=== PATIENT | female | born 1955 | race Caucasian/White ===

== ENCOUNTER 2018-01-27 06:39 | Emergency (ER) | payer OTHER ==
[2014-08-03 13:54] VITALS: Wt 74.8 kg
[~2018-01-27 06:39] MED LIST: ACET500L35 PO; ALB17R INH; AMLO-99 PO; AMOX-559 PO; ASPI-879 PO; AZIT-18 PO; AZIT500T47 PO; Acetaminophen PO; Amlodipine Besylate PO; BENZ100C4 PO; BONIVA; CELE-1 PO; CEP250 PO; CETI-459 PO; CEVIMPT PO; HYD200 PO; HYDR-4309 PO; IRBE1TAB24 PO; LISINOPRIL PO; LOR10 PO; MEDROL DOSE PACK; METR-1 PO; MON10 PO; OND4 PO; ONDA4TAB PO; OSE75 PO; PER PO; PRO25 PO; PROM-110 PO
--- NOTE | 2018-01-27 06:52 | ER Report ---
History and Physical Time Seen By MD: 06:51 Hx. of Stated Complaint: PT AWOKE AT 0400 WITH R FLANK PAIN RAD AROUND TO R SIDE. NO HX OF KIDNEY STONES HPI/ROS CHIEF COMPLAINT: Right flank pain with radiation to the right groin HISTORY OF PRESENT ILLNESS: Patient is a 62-year-old female here with sudden onset of right flank pain which started approximately 4:00 this morning and has been persistent, sharp, radiating to the right groin without the presence of hematuria. She did complain of some dysuria this morning however is been previously normal. Patient reports subjective fever however is afebrile at time of evaluation. She does have right lower abdominal pain as well as right CVA tenderness. Denies prior history of nephrolithiasis, hematuria, melena, hematochezia. Patient denies chest pain, shortness of breath,vomiting. She does endorse persistent pain as well as mild nausea. Patient does have history of a cholecystectomy however denies appendectomy. REVIEW OF SYSTEMS: Constitutional: + subjective fever, no chills. Eyes: No discharge. ENT: No sore throat. Cardiovascular: No chest pain, no palpitations. Respiratory: No cough, no shortness of breath. Gastrointestinal: + right mid abdominal pain, no vomiting. Genitourinary: No hematuria, + mild dysuria Musculoskeletal: + right CVA tenderness Skin: No rashes. Neurological: No headache. Allergies: Coded Allergies: Sulfa (Sulfonamide Antibiotics) (Verified Allergy, Severe, 01/27/18) hydrochlorothiazide (Verified Allergy, Unknown, 01/27/18) Uncoded Allergies: INJECTABLE IODINE (Allergy, Severe, 06/11/09) Home Meds Active Scripts Tamsulosin Hcl (FLOMAX) 0.4 Mg Cap.er.24h, 0.4 MG PO QDAY for 14 Days, #14 CAP 0 Refills Prov:DINAH SANDS DO 01/27/18 [Acetaminophen] 500 MG TAB No Conflict Check, 500 MG PO Q6H Y for PAIN, #0 TAB Prov:JADYN SEWELL MD 08/04/14 Reported Medications Duloxetine Hcl (CYMBALTA) 30 Mg Capsule.dr, 30 MG PO QDAY, #5 CAP 01/27/18 Aspirin/Calcium Carbonate/Mag (ASPIRIN BUFFERED 325 MG TAB) 325 Mg Tablet, 325 MG PO DAILY 08/02/14 Cevimeline Hcl (EVOXAC) 30 Mg Cap, 30 MG PO 1-2XD, CAP 08/02/14 Cetirizine Hcl (Zyrtec) 10 Mg Tablet, 10 MG PO QDAY, 0 Refills 06/11/09 Albuterol (Proventil Inhaler) 17 Gm Inh, 1 - 2 PUFF INH, 0 Refills 2 PUFFS 06/11/09 Discontinued Scripts Oseltamivir Phosphate (TAMIFLU) 75 Mg Cap, 75 MG PO BID, #9 CAP Prov:MATHEUS OTERO NP 11/01/16 Ondansetron (ZOFRAN ODT) 4 Mg Tab.rapdis, 4 MG PO Q6H Y for NAUSEA/VOMITING, # 20 TAB.LAUREN Prov:MATHEUS OTERO NP 11/01/16 Benzonatate 100 Mg Cap (TESSALON PERLE 100 MG CAP) 100 Mg Capsule, 100 MG PO TID Y for COUGH, #15 CAP Prov:MATHEUS OTERO NP 11/01/16 Azithromycin 250 Mg Tab (AZITHROMYCIN 250 MG TAB) 250 Mg Tablet, 1 TAB PO QDAY, #6 TAB Take 2 tabs today and then 1 tab a day until gone. Prov:SAUL ABRAMS INFORMATION SERVICES CONSULTANT 10/30/16 Past Medical/Surgical History Hypertension, asthma, acid reflux, frequent urinary tract infection, Sjogren's, skin cancer, pituitary tumor, cholecystectomy, hip replacement, Hx Smoking: No Smoking Status: Never Smoker Exposure to Second Hand Smoke?: No Hx Substance Use Disorder: No Hx Alcohol Use: No Constitutional Vital Sign - Last 24 Hours 01/27/18 01/27/18 01/27/18 01/27/18 06:46 06:46 07:09 07:13 Temp 97.8 Pulse 79 80 Resp 20 B/P (MAP) 149/92 149/92 (111) 129/79 (96) Pulse Ox 93 94 O2 Delivery Room Air 01/27/18 01/27/18 01/27/18 01/27/18 07:15 07:30 07:39 07:45 Pulse 78 B/P (MAP) 138/86 (103) 134/84 (101) 122/78 (93) Pulse Ox 97 01/27/18 01/27/18 01/27/18 01/27/18 07:50 08:00 08:05 08:30 Pulse 70 68 B/P (MAP) 139/80 (99) 136/83 (100) Pulse Ox 95 98 01/27/18 01/27/18 01/27/18 01/27/18 08:35 08:45 09:05 09:15 Pulse 64 B/P (MAP) 138/79 (98) 134/80 (98) Pulse Ox 97 80 01/27/18 01/27/18 01/27/18 01/27/18 09:30 09:35 09:45 09:50 Pulse 74 76 B/P (MAP) 127/70 (89) 140/82 (101) Pulse Ox 95 95 Intake and Output 01/27/18 01/27/18 01/28/18 15:00 23:00 07:00 Intake Total 1000 ml Balance 1000 ml Physical Exam General Appearance: The patient is alert, has no immediate need for airway protection and no signs of toxicity. + moderate discomfort due to pain Eyes: Pupils equal and round no pallor or injection. ENT, Mouth: Mucous membranes are moist. Respiratory: There are no retractions, lungs are clear to auscultation. Cardiovascular: Regular rate and rhythm. Gastrointestinal: Abdomen is soft and + TTP right mid abdomen no masses, bowel sounds normal. Neurological: No focal deficits Skin: Warm and dry, no rashes. Musculoskeletal: Neck is supple non tender, + right CVA tenderness. Extremities are nontender, nonswollen and have full range of motion. DIFFERENTIAL DIAGNOSIS: After history and physical exam differential diagnosis was considered for abdominal pain including but not limited to appendicitis, cholecystitis, gastritis and urinary tract infection, nephrolithiasis, pyelonephritis Medical Decision Making Data Points Result Diagram: 01/27/18 0704 01/27/18 0704 Laboratory Hematology Test 01/27/18 07:04 01/27/18 09:07 01/27/18 10:03 Red Blood Count 5.07 M/uL (4.17-5.56) Mean Corpuscular Volume 100.9 fL (80.0-96.0) Mean Corpuscular Hemoglobin 34.4 pg (26.0-33.0) Mean Corpuscular Hemoglobin Concent 34.0 g/dL (32.0-36.0) Red Cell Distribution Width 13.2 % (11.5-14.5) Mean Platelet Volume 7.5 fL (7.2-11.1) Neutrophils (%) (Auto) 69.7 % (39.4-72.5) Lymphocytes (%) (Auto) 16.7 % (17.6-49.6) Monocytes (%) (Auto) 9.3 % (4.1-12.4) Eosinophils (%) (Auto) 3.1 % (0.4-6.7) Basophils (%) (Auto) 1.2 % (0.3-1.4) Nucleated RBC Relative Count (auto) 0.1 /100WBC Neutrophils # (Auto) 6.8 K/uL (2.0-7.4) Lymphocytes # (Auto) 1.6 K/uL (1.3-3.6) Monocytes # (Auto) 0.9 K/uL (0.3-1.0) Eosinophils # (Auto) 0.3 K/uL (0.0-0.5) Basophils # (Auto) 0.1 K/uL (0.0-0.1) Nucleated RBC Absolute Count (auto) 0.01 K/uL Sodium Level 142 mmol/L (137-145) Potassium Level 4.0 mmol/L (3.5-5.0) Chloride Level 105 mmol/L (98-107) Carbon Dioxide Level 24 mmol/L (22-31) Blood Urea Nitrogen 22 mg/dl (7-18) Creatinine 0.90 mg/dl (0.52-1.04) Glomerular Filtration Rate Calc > 60.0 Random Glucose 96 mg/dl (75-110) Calcium Level 10.2 mg/dl (8.4-10.2) Total Bilirubin 0.4 mg/dl (0.2-1.3) Aspartate Amino Transf (AST/SGOT) 29 U/L (0-35) Alanine Aminotransferase (ALT/SGPT) 44 U/L (0-56) Alkaline Phosphatase 163 U/L (0-126) Total Protein 6.6 gm/dl (6.3-8.2) Albumin 4.0 g/dl (3.5-5.0) Lipase 104 U/L (23-300) Urine Color Yellow Urine Clarity Slightly-cloudy Urine pH 5.0 pH (4.8-9.5) Urine Specific [place] 1.033 Urine Protein Negative mg/dL (NEGATIVE) Urine Glucose (UA) Negative mg/dL (NEGATIVE) Urine Ketones Negative mg/dL (NEGATIVE) Urine Blood Negative (NEGATIVE) Urine Nitrite Negative (NEGATIVE) Urine Bilirubin Negative (NEGATIVE) Urine Urobilinogen Negative mg/dL (0.2-1.9) Urine Leukocyte Esterase Large (NEGATIVE) Urine RBC 71 /HPF (0-2/HPF) Urine WBC 63 /HPF (0-5/HPF) Urine Squamous Epithelial Cells Many /LPF (</=FEW) Urine Renal Epithelial Cells Moderate /LPF (NONE-FEW) Urine Calcium Oxalate Crystals Few /HPF (NONE) Urine Bacteria Negative /HPF (NONE-FEW) Urine Mucus Few /HPF (NONE-FEW) Lactate 0.6 mmol/L (0.7-2.1) Chemistry Test 01/27/18 07:04 01/27/18 09:07 01/27/18 10:03 White Blood Count 9.7 k/uL (4.5-11.0) Red Blood Count 5.07 M/uL (4.17-5.56) Hemoglobin 17.4 g/dL (12.0-16.0) Hematocrit 51.1 % (34.0-47.0) Mean Corpuscular Volume 100.9 fL (80.0-96.0) Mean Corpuscular Hemoglobin 34.4 pg (26.0-33.0) Mean Corpuscular Hemoglobin Concent 34.0 g/dL (32.0-36.0) Red Cell Distribution Width 13.2 % (11.5-14.5) Platelet Count 411 K/uL (150-450) Mean Platelet Volume 7.5 fL (7.2-11.1) Neutrophils (%) (Auto) 69.7 % (39.4-72.5) Lymphocytes (%) (Auto) 16.7 % (17.6-49.6) Monocytes (%) (Auto) 9.3 % (4.1-12.4) Eosinophils (%) (Auto) 3.1 % (0.4-6.7) Basophils (%) (Auto) 1.2 % (0.3-1.4) Nucleated RBC Relative Count (auto) 0.1 /100WBC Neutrophils # (Auto) 6.8 K/uL (2.0-7.4) Lymphocytes # (Auto) 1.6 K/uL (1.3-3.6) Monocytes # (Auto) 0.9 K/uL (0.3-1.0) Eosinophils # (Auto) 0.3 K/uL (0.0-0.5) Basophils # (Auto) 0.1 K/uL (0.0-0.1) Nucleated RBC Absolute Count (auto) 0.01 K/uL Glomerular Filtration Rate Calc > 60.0 Calcium Level 10.2 mg/dl (8.4-10.2) Total Bilirubin 0.4 mg/dl (0.2-1.3) Aspartate Amino Transf (AST/SGOT) 29 U/L (0-35) Alanine Aminotransferase (ALT/SGPT) 44 U/L (0-56) Alkaline Phosphatase 163 U/L (0-126) Total Protein 6.6 gm/dl (6.3-8.2) Albumin 4.0 g/dl (3.5-5.0) Lipase 104 U/L (23-300) Urine Color Yellow Urine Clarity Slightly-cloudy Urine pH 5.0 pH (4.8-9.5) Urine Specific [place] 1.033 Urine Protein Negative mg/dL (NEGATIVE) Urine Glucose (UA) Negative mg/dL (NEGATIVE) Urine Ketones Negative mg/dL (NEGATIVE) Urine Blood Negative (NEGATIVE) Urine Nitrite Negative (NEGATIVE) Urine Bilirubin Negative (NEGATIVE) Urine Urobilinogen Negative mg/dL (0.2-1.9) Urine Leukocyte Esterase Large (NEGATIVE) Urine RBC 71 /HPF (0-2/HPF) Urine WBC 63 /HPF (0-5/HPF) Urine Squamous Epithelial Cells Many /LPF (</=FEW) Urine Renal Epithelial Cells Moderate /LPF (NONE-FEW) Urine Calcium Oxalate Crystals Few /HPF (NONE) Urine Bacteria Negative /HPF (NONE-FEW) Urine Mucus Few /HPF (NONE-FEW) Lactate 0.6 mmol/L (0.7-2.1) Urinalysis Test 01/27/18 09:07 Urine Color Yellow Urine Clarity Slightly-cloudy Urine pH 5.0 pH (4.8-9.5) Urine Specific [place] 1.033 Urine Protein Negative mg/dL (NEGATIVE) Urine Glucose (UA) Negative mg/dL (NEGATIVE) Urine Ketones Negative mg/dL (NEGATIVE) Urine Blood Negative (NEGATIVE) Urine Nitrite Negative (NEGATIVE) Urine Bilirubin Negative (NEGATIVE) Urine Urobilinogen Negative mg/dL (0.2-1.9) Urine Leukocyte Esterase Large (NEGATIVE) Urine RBC 71 /HPF (0-2/HPF) Urine WBC 63 /HPF (0-5/HPF) Urine Squamous Epithelial Cells Many /LPF (</=FEW) Urine Renal Epithelial Cells Moderate /LPF (NONE-FEW) Urine Calcium Oxalate Crystals Few /HPF (NONE) Urine Bacteria Negative /HPF (NONE-FEW) Urine Mucus Few /HPF (NONE-FEW) ED Course/Re-evaluation ED Course Patient is a 62-year-old female with acute onset of right flank pain new-onset approximately 4:[address] imaging identified a 5 mm kidney stone in the proximal right ureter with mild hydronephrosis. Urinalysis was contaminated but was not convincing for urinary tract infection. I discussed the patient with Dr. aBker with Urology on-call who agreed with outpatient follow-up. Referral was placed. I updated the patient regarding the plan and she voiced understanding. She was given a prescription for Flomax. Kidney function was intact. Pain was under control and I discussed pain management courses at home. Patient voiced understanding and agreed to return promptly if condition worsened. Re-evaluation Patient condition improved upon reevaluation Decision to Disposition Date: January 27, 2018 Decision to Disposition Time: 10:26 Depart Departure Latest Vital Signs Vital Signs Date Time Temp Pulse Resp B/P (MAP) Pulse Ox O2 Delivery O2 Flow Rate FiO2 01/27/18 09:50 76 95 01/27/18 09:45 140/82 (101) 01/27/18 06:46 97.8 20 Room Air Impression: Primary Impression: Nephrolithiasis Additional Impression: Flank pain, acute Condition: Improved Disposition: HOME OR SELF-CARE Referrals: TAI EAGLE DO (PCP) ISELA BAKER MD New Scripts Tamsulosin Hcl (FLOMAX) 0.4 Mg Cap.er.24h 0.4 MG PO QDAY for 14 Days, #14 CAP 0 Refills Prov: DINAH SANDS DO 01/27/18 Patient Instructions: Kidney Stones (ED), Tamsulosin (By mouth) Additional Instructions: You have a kidney stone in her right proximal ureter which is 5 mm in diameter which places you at a higher risk of not passing the stone. I discussed your case with Dr. Baker and he agreed to follow-up with you in clinic. Please call the urology clinic for follow-up for tomorrow. You may take pain medications as needed for pain control, including naproxen or Advil as recommended on the bottle. You may take 1 tablet of Flomax daily to increase the likelihood that you will pass the stone. Problem Qualifiers DINAH SANDS DO January 27, 2018 06:52
[2018-01-27] MEDS ORDERED: DULO30CA35 PO (06:53)
[2018-01-27] MEDS ORDERED: NS(*) 0.9% 1000 ML BAG 1,000 ML IV ONE (06:58)
[2018-01-27] MEDS ORDERED: KETOROLAC 30 MG/ML VIAL IVP ONE (07:00)
[2018-01-27] MEDS ORDERED: ONDANSETRON 4 MG/2 ML VIAL IVP ONE (07:00)
[2018-01-27 07:14] LABS: PLATELET COUNT, AUTOMATED 411 K/uL (150-450)
--- NOTE | 2018-01-27 07:58 | RADIOLOGY IMAGING REPORT ---
FACILITY: [facility] - [place] PATIENT NAME: Analisa Espinosa : 1955 MR: [id number] V: [id number] EXAM DATE: ORDERING PHYSICIAN: DINAH SANDS TECHNOLOGIST: Location: [facility] - [place] Patient: Analisa Espinosa : 1955 Visit/Account:[id number] Date of Sevice: 01/27/2018 EXAMINATION: CT abdomen without IV contrast CT pelvis without IV contrast HISTORY: Right flank pain. TECHNIQUE: Spiral scan was through the abdomen and pelvis without intravenous contrast. Sagittal a nd coronal reformatted images are also submitted. One of the following dose optimization techniques was utilized in the performance of this exam: Autom ated exposure control; adjustment of the mA and/or kV according to the patient's size; or use of an i terative reconstruction technique. Specific details can be referenced in the facility's radiology C T exam operational policy. COMPARISON: None. FINDINGS: Lower chest: Multiple micronodules in the lung bases, unchanged compared with 08/02/2014. Please note that without intravenous contrast, sensitivity to detection of parenchymal disease is scott ited. Liver / biliary: Cholecystectomy. Otherwise negative. Pancreas: Negative. Spleen: Negative. Adrenal glands: Negative. Kidneys: 2 mm nonobstructing stones in the inferior left kidney. 5 mm stone in the proximal right ure ter with mild right hydronephrosis. Small parapelvic cysts in the inferior left kidney. Pelvic structures: Negative. Bowel: Normal appendix. No obstruction or bowel wall thickening. Peritoneum / retroperitoneum / mesenteries: Negative. Vessels: Mild arterial calcification. No abdominal aortic aneurysm. Musculoskeletal / Body wall: Partially imaged right hip arthroplasty. Mild left hip osteoarthritis. M ultilevel degenerative disc disease and facet hypertrophy in the thoracolumbar spine, most severe at L5-S1. Lymph node assessment: Negative. IMPRESSION: 1. 5 mm stone in the proximal right ureter with mild right hydronephrosis. 2. 2 mm nonobstructing stones in the inferior left kidney. Report Dictated By: Stephen Fuentes MD at 01/27/2018 7:46 AM Report E-Signed By: Stephen Fuentes MD at 01/27/2018 7:54 AM WSN:[id number]
[2018-01-27] MEDS ORDERED: METOCLOPRAMIDE 10 MG/2 ML SDV IVP ONE (08:05)
[2018-01-27] MEDS ORDERED: HYDROmorphone* 1 MG/ML 1 MG/ML ML IVP ONE (08:15)
[2018-01-27 09:45] VITALS: BP 140/82
[2018-01-27] MEDS ORDERED: TAMS0.4C25 PO (10:20)
== END 2018-01-27 10:33 | disposition home or self-care (01) ==
LOC: ER 06:46
DX: N13.2 Hydronephrosis with renal and ureteral calculous obstruction (principal)
CPT/HCPCS: 36415; 74176; 81001; 83605; 83690; 85025; 87088; 96361; 96374; 96375; 99284; J1170; J1885; J2405; J2765; J7030; 82040; 82247; 82310; 82374; 82435; 82565; 82947; 84075; 84132; 84155; 84295; 84450; 84460; 84520

== ENCOUNTER 2018-02-06 01:43 | Day surgery (SDC) | payer OTHER ==
[2014-08-03 13:54] VITALS: Ht 162.6 cm; Wt 76.2 kg
[~2018-02-06] VITALS: Ht 162.6 cm; Wt 76.2 kg
[~2018-02-06 01:43] MED LIST changes: +DULO30CA35 PO; +NABU-95 PO; +TAMS0.4C25 PO
[2018-02-06 06:08] LABS: PLATELET COUNT, AUTOMATED 454 K/uL (150-450)
[2018-02-06] MEDS ORDERED: ceFAZolin(*) 1 GM VIAL 1 GM in NS(*) 0.9% 100 ML ADDVANT BAG 100 ML IVPB ONE (06:45)
[2018-02-06] MEDS ORDERED: ceFAZolin(*) 2GM/D5W 50ML 50 ML IVPB ONE (06:45)
[2018-02-06] MEDS ORDERED: NORMOSOL R SOLN(*) 1000 ML BAG 1,000 ML IV PRN (06:45)
[2018-02-06] MEDS ORDERED: LIDOCAINE/SOD BICARB 8.4% SYR ID ONE (06:45)
[2018-02-06] MEDS ORDERED: MIDAZOLAM 2 MG/2 ML VIAL IVP PRN (06:45)
[2018-02-06] MEDS ORDERED: FAMOTIDINE 20 MG TAB PO ONE (06:45)
[2018-02-06 07:03] VITALS: BP 164/93
[2018-02-06] MEDS ORDERED: IOPAMIDOL-200 50 ML VIAL IS ONE ×2 (07:11→09:03)
[2018-02-06] MEDS ORDERED: IOPAMIDOL 20 ML VIAL IT ONE (07:11)
[2018-02-06] MEDS ORDERED: fentaNYL CITR 100 MCG/2 ML AMP ONE ×2 (07:13→10:52)
[2018-02-06] MEDS ORDERED: ONDANSETRON 4 MG/2 ML VIAL ONE (07:14)
[2018-02-06] MEDS ORDERED: LIDOCAINE MPF 1% 5 ML VIAL ONE (07:14)
[2018-02-06] MEDS ORDERED: PROPOFOL EMUL(*) 10MG/ML 20 ML 20 ML ONE (07:14)
[2018-02-06] MEDS ORDERED: DEXAMETHASONE SOD PHOS 10MG/ML ONE (07:14)
[2018-02-06] MEDS ORDERED: KETAMINE HCL 200 MG/20 ML MDV ONE (07:15)
[2018-02-06] MEDS ORDERED: LIDOCAINE 2% JELLY 5 ML TUBE ONE (07:15)
[2018-02-06] MEDS ORDERED: HYDROCORTISONE 1% CR 28.35 GM TP ONE (07:15)
[2018-02-06] MEDS ORDERED: HYDR-4309 PO (10:21)
[2018-02-06] MEDS ORDERED: FAMO20TA28 PO (10:22)
[2018-02-06] MEDS ORDERED: PHEN200T32 PO (10:22)
[2018-02-06] MEDS ORDERED: IBUP600T22 PO (10:23)
[2018-02-06] MEDS ORDERED: CEPH500T7 PO (10:23)
[2018-02-06] MEDS ORDERED: PHENAZOPYRIDINE 200 MG TAB ONE (10:37)
[2018-02-06] MEDS ORDERED: GENTAMICIN(*) 80 MG/2 ML VIAL 160 MG in NS(*) 0.9% 100 ML BAG 100 ML IVPB ONE (10:45)
[2018-02-06] MEDS ORDERED: APAP/HYDROCODONE 325/5 TAB ONE (11:09)
[2018-02-06 11:15] VITALS: BP 146/88
[2018-02-06 11:30] VITALS: BP 142/76
--- NOTE | 2018-02-06 11:36 | RADIOLOGY IMAGING REPORT ---
FACILITY: [facility] PATIENT NAME: Analisa Espinosa : 1955 MR: [id number] V: [id number] EXAM DATE: ORDERING PHYSICIAN: ISELA BAKER TECHNOLOGIST: Location: [facility] - [place] Patient: Analisa Espinosa : 1955 Visit/Account:[id number] Date of Sevice: 02/06/2018 Exam type: RETROGRADE PYELOGRAM History: KIDNEY STONES Comparison: CT abdomen and pelvis January 27, 2018. Findings: 11 portable intraoperative fluoroscopic views of the abdomen pelvis were submitted. The total fluoro scopy time was 0.11 minutes. The fluoroscopy dose was 8.32 mGray . Image one demonstrates a 5 mm calcification previously described in the proximal right ureter proj ecting just inferior to the right transverse process of L3. Subsequent images demonstrated contrast in the mildly dilated right renal collecting system and in the right ureter and bladder. The calcifi cation is obscured by the contrast although likely refluxed retrograde into the right renal collectin g system. IMPRESSION: 1. As above Report Dictated By: Archana Marti MD at 02/06/2018 11:10 AM Report E-Signed By: Archana Marti MD at 02/06/2018 11:33 AM IRMAN:[email or web address]
[2018-02-06 11:45] VITALS: BP 146/82
--- NOTE | 2018-02-06 12:26 | FLOCK CYSTOURETHROSCOPY ---
EVENT DATE: February 06, 2018 SURGEON: Shay Lagos MD ANESTHESIOLOGIST: Richmond Chaudhari MD ANESTHESIA: General PREOPERATIVE DIAGNOSES 1. Right ureteral lithiasis. 2. Left ureteral lithiasis. POSTOPERATIVE DIAGNOSES 1. Right ureteral lithiasis. 2. Left ureteral lithiasis. PROCEDURES PERFORMED 1. Cystourethroscopy. 2. Right ureteral pyelogram. 3. Manipulation of right ureteral stone in the right renal pelvis. 4. Placement of right indwelling ureteral stent, 6-Romansh x 26 cm PercuFlex Plus. 5. Placement of external stent of the left kidney. 6. Left extracorporeal shockwave lithotripsy of one stone in the left kidney. 7. Right extracorporeal shockwave lithotripsy of manipulated stone in the right renal pelvis, one stone treated. DESCRIPTION OF PROCEDURE Under general anesthetic, the patient was prepped and draped in the extended lithotomy position. The 21-Panendoscope was admitted through the urethra and into the bladder. No stones were visible in the bladder. Right right pyelograms were obtained with a 10 cone-tip catheter. There appeared to be possibly a stone in the right upper ureter. The 10 cone-tip was passed up the right collective system. I believe there was a stone dislodged 2-3 inches below the right renal pelvis into the right kidney. The 6-Romansh x 26 cm PercuFix Plus was passed up the right collecting system. X-ray confirmed satisfactory position. The external stent was placed up the left system, 8- Romansh cone-tip. The external stent was secured to a Lopez catheter and drainage system. Contrast media was attached. The patient was transferred to the stone treatment unit. After positioning, the stone in the anterior pole area was localized utilizing contrast media and treated with a total of 2300 shocks. The patient was repositioned for possible right extracorporeal shockwave lithotripsy. It was our clinical impression that the stone, indeed, had been manipulated into the right renal pelvis. The technologist positioned the shockwave machine for right extracorporeal shockwave lithotripsy and after localization the stone that had manipulated into the right renal pelvis was treated with total again with 2300 shocks. Contrast media was not needed. The stone appeared to have satisfactorily disintegrated. The patient tolerated the procedure satisfactorily and returned to the recovery room in satisfactory condition. The left external stent and cath Lopez were removed. This is a 61-year-old white female complaining of right ureteral lithiasis with associated colic, nausea and vomiting. Her pain diminished and she was tolerating liquids and elected to follow up for evaluation therapy. That has been accomplished. See operative note for details. The patient will be ready for discharge home when alert and functional. She is to force fluids 12 glasses of water per day. Activities are as tolerated. We plan followup this coming Sunday, February 11, 2018. She is to call for an appointment. A copy of the instructions was given to the patient. She is to strain all of her urine. She was sent home with strainers. The patient is ____ __ kidney to facilitate passage of stone particles. A copy of instructions for renal precautions was given to the patient. A copy of explanation and expectations from right indwelling ureteral stent was given to the patient. KUB and renal tomograms were planned for Saturday a.m. on February 11, 2018. She is to bring her films to the office for review. She was discharged on [place], Keflex, Pepcid, Motrin and Pyridium therapy. She is to continue her usual medications. We plan followup in one week to remove the right ureteral stent and do right uteroscopy to reevaluate for resolution of her urolithiasis problem. We may consider CT IVP without contrast as well and followup. DALE
[2018-02-12] MEDS ORDERED: FLUT1DIS27 IH (10:55)
--- NOTE | 2018-02-20 09:12 | RADIOLOGY IMAGING REPORT ---
FACILITY: [facility] - [place] PATIENT NAME: Analisa Espinosa : 1955 MR: [id number] V: [id number] EXAM DATE: ORDERING PHYSICIAN: ISELA BAKER TECHNOLOGIST: Location: [facility] [place] Patient: Analisa Espinosa : 1955 Visit/Account:[id number] Date of Sevice: 02/06/2018 KUB SINGLE VIEW ABDOMEN HISTORY: Kidney stone. COMPARISON: CT abdomen and pelvis without contrast dated 01/27/2018. FINDINGS: Supine abdominal radiograph. Lines/tubes: None. Bowel gas pattern: Normal. Soft tissues: 5 to 6 mm stone in the proximal right ureter, better seen on the recent CT scan. Right upper quadrant surgical clips. Bony structures: Partially imaged right hip arthroplasty. Mild degenerative changes in the spine. IMPRESSION: 5 to 6 mm stone in the proximal right ureter, better seen on the recent CT scan. Report Dictated By: Stephen Fuentes MD at 02/20/2018 9:05 AM Report E-Signed By: Stephen Fuentes MD at 02/20/2018 9:07 AM WSN:[id number]
== END 2018-02-06 11:01 | disposition home or self-care (01) ==
LOC: OR 01:43
DX: N20.2 Calculus of kidney with calculus of ureter (principal); J45.909 Unspecified asthma, uncomplicated; I10 Essential (primary) hypertension; G47.33 Obstructive sleep apnea (adult) (pediatric); K21.9 Gastro-esophageal reflux disease without esophagitis; F32.9 Major depressive disorder, single episode, unspecified; Z90.49 Acquired absence of other specified parts of digestive tract
CPT/HCPCS: 36415; 52330; 52356; 74018; 74420; 81001; 85025; 87088; A4338; C1758; C1769; C1894; C2617; J0690; J1100; J1580; J2001; J2405; J2704; J3010; J3490; J7050; Q9966

== ENCOUNTER → 2018-02-11 | Outpatient (CLI) | payer OTHER ==
[2014-08-03 13:54] VITALS: BMI 27.5
[~2018-02-11] MED LIST changes: +CEPH500T7 PO; +FAMO20TA28 PO; +FLUT1DIS27 IH; +IBUP600T22 PO; +PHEN200T32 PO
--- NOTE | 2018-02-11 08:46 | RADIOLOGY IMAGING REPORT ---
FACILITY: [facility] - [place] PATIENT NAME: Analisa Espinosa : 1955 MR: [id number] V: [id number] EXAM DATE: ORDERING PHYSICIAN: ISELA BAKER TECHNOLOGIST: Location: [facility] [place] Patient: Analisa Espinosa : 1955 Visit/Account:[id number] Date of Sevice: 02/11/2018 Exam type: KUB SINGLE VIEW ABDOMEN History: Nephrolithiasis Comparison: CT abdomen pelvis January 27, 2018. And a retropyelogram February 06, 2018 Findings: Bowel gas pattern is nonspecific. There is a right ureteral stent in place. The previously noted ri ght ureteral calculus may be projecting over the right transverse process of L4 although; this could actually represent overlying bowel contents. No definite calcifications are seen projecting over the renal shadows although overlapping bowel contents are also present obscuring fine details. Incident ally noted is a right hip arthroplasty and surgical clips right upper quadrant of abdomen IMPRESSION: 1. As above Report Dictated By: Archana Marti MD at 02/11/2018 8:38 AM Report E-Signed By: Archana Marti MD at 02/11/2018 8:41 AM WSN:[email or web address]
== END ==
LOC: RAD 08:00
DX: N20.2 Calculus of kidney with calculus of ureter (principal); Z96.0 Presence of urogenital implants; Z96.641 Presence of right artificial hip joint
CPT/HCPCS: 74018

== ENCOUNTER 2018-02-13 00:12 | Day surgery (SDC) | payer OTHER ==
[2014-08-03 13:54] VITALS: Ht 162.6 cm; Wt 76.2 kg
[~2018-02-13] VITALS: Ht 162.6 cm; Wt 76.2 kg
[2018-02-13 08:05] VITALS: BP 152/90
[2018-02-13] MEDS ORDERED: NORMOSOL R SOLN(*) 1000 ML BAG 1,000 ML IV PRN (08:10)
[2018-02-13] MEDS ORDERED: FAMOTIDINE 20 MG TAB PO ONE (08:10)
[2018-02-13] MEDS ORDERED: MIDAZOLAM 2 MG/2 ML VIAL IVP PRN (08:10)
[2018-02-13] MEDS ORDERED: ceFAZolin(*) 1 GM VIAL 1 GM in NS(*) 0.9% 100 ML ADDVANT BAG 100 ML IVPB ONE (08:10)
[2018-02-13] MEDS ORDERED: LIDOCAINE/SOD BICARB 8.4% SYR ID ONE (08:10)
[2018-02-13] MEDS ORDERED: fentaNYL CITR 100 MCG/2 ML AMP ONE ×3 (08:13→10:55)
[2018-02-13] MEDS ORDERED: LIDOCAINE 2% IV 100 MG/5ML SYR ONE (08:13)
[2018-02-13] MEDS ORDERED: PROPOFOL EMUL(*) 10MG/ML 20 ML 20 ML ONE (08:14)
[2018-02-13] MEDS ORDERED: IOPAMIDOL-200 50 ML VIAL IS ONE (09:26)
[2018-02-13] MEDS ORDERED: HYDROCORTISONE 1% CR 28.35 GM TP ONE (09:26)
[2018-02-13] MEDS ORDERED: ONDANSETRON 4 MG/2 ML VIAL ONE (09:49)
[2018-02-13] MEDS ORDERED: DEXAMETHASONE SOD PHOS 10MG/ML ONE (09:49)
[2018-02-13] MEDS ORDERED: GENTAMICIN 80 MG/2 ML VIAL ONE (09:57)
[2018-02-13] MEDS ORDERED: KETOROLAC 30 MG/ML VIAL ONE (11:51)
[2018-02-13] MEDS ORDERED: PHEN200T32 PO (11:54)
[2018-02-13] MEDS ORDERED: CEPH500T7 PO (11:55)
[2018-02-13] MEDS ORDERED: FAMO-67 PO (11:56)
[2018-02-13] MEDS ORDERED: HYDR-385 PO (11:56)
[2018-02-13] MEDS ORDERED: PHENAZOPYRIDINE 200 MG TAB ONE (12:02)
[2018-02-13 12:25] VITALS: BP 152/97
[2018-02-13 12:36] VITALS: BP 158/103
[2018-02-13 12:38] VITALS: BP 149/95
--- NOTE | 2018-02-13 13:56 | RADIOLOGY IMAGING REPORT ---
FACILITY: [facility] PATIENT NAME: Analisa Espinosa : 1955 MR: [id number] V: [id number] EXAM DATE: ORDERING PHYSICIAN: ISELA BAKER TECHNOLOGIST: Location: [facility] Patient: Analisa Espinosa : 1955 Visit/Account:[id number] Date of Sevice: 02/13/2018 Exam type: C-ARM FLUORO 1 HR History: STENT REMOVAL AND POSSIBLE KIDNEY STONE Comparison: CT abdomen and pelvis January 27, 2018. Findings: 21 portable intraoperative CR spot views of the abdomen pelvis were submitted. The total fluoroscopy time was 0.18 minutes. The fluoroscopy dose of 16 mGray. Numerous images demonstrate a ureteroscope and guidewire projecting over the right side of the abdome n and pelvis. The calculi identified in the proximal right ureter and within the left renal collecti ng system on the recent CT are not well seen. IMPRESSION: 1. As above Report Dictated By: Archana Marti MD at 02/13/2018 1:40 PM Report E-Signed By: Archana Marti MD at 02/13/2018 1:52 PM WSN:[id number]
--- NOTE | 2018-02-13 13:58 | OPERATIVE REPORT 1 ---
EVENT DATE: February 13, 2018 SURGEON: Hemal Lagos MD ANESTHESIOLOGIST: Arthur Chaudhry MD ANESTHESIA: General anesthetic. PREOPERATIVE DIAGNOSES 1. Possible right ureterorenal lithiasis. 2. Urethral polyps. 3. Right ureteral stent. POSTOPERATIVE DIAGNOSES 1. Possible right ureterorenal lithiasis. 2. Urethral polyps. 3. Right ureteral stent. PROCEDURES PERFORMED 1. Cystourethroscopy. 2. Removal of the right ureteral stent. 3. Semi-rigid ureteroscopy. 4. Flexible ureterorenoscopy. 5. Fulguration of urethral polyps. DESCRIPTION OF PROCEDURE Under general anesthetic, the patient was prepped and draped in an extended lithotomy position. A 21 panendoscope admitted through the urethra into the bladder. The urethra showed an inflammatory urethritis and pseudomembranous trigonitis. She had a few fine velamentous-type polyps at the bladder neck area circumferentially. Bladder showed 2 to 3+ trabeculation. Trigone and ureteral orifices were normal. Right ureteral stent was removed. Both pre- and post stent removal, no stones were visible in the bladder. The semi-rigid scope passed up the right collecting system to approximately the mid upper ureter. I was unable to negotiate beyond that point. Both ascending and descending with the semi-rigid scope revealed no ureterolithiasis. The guidewire was placed. The flexible ureterorenoscope was passed over the guidewire up into the right kidney. X-ray confirmed satisfactory positioning. Inspection of the collecting system, renal pelvis showed one small fragment of calculi. There were no other stone fragments. Both ascending and descending the ureter, no stones were visible again in the ureter. The polyps at the bladder neck area were lightly fulgurated with light coagulation current, just the polyps themselves. No intervening tissue. There were approximately five to six of these in number. The urethral polyps were satisfactorily resolved with light coagulation current. Hydrocortisone cream was left per urethra. Patient tolerated the procedures satisfactorily and returned to the recovery room in satisfactory condition. This is a 62-year-old white female complaining of right upper ureteral and left renal lithiasis. She had previous treatment approximately two weeks ago. Followup KUB shows probable resolution of the ureterolithiasis. That was confirmed in my opinion on this evaluation. The urethral polyps were lightly fulgurated. Patient will be ready for discharge home when alert and functional. Force fluids, 12 glasses of water per day. Activities are as tolerated. She is to continue her usual medications. A copy of instructions was given to the patient. Plan followup 11 March 2018. She is to call for an appointment. She is to strain all her urine, and she states she has been straining for fragments periodically since her ESWL treatment. Again, she is to percuss the right kidney frequently to facilitate passage of any stone particles. A copy of instructions again was given for renal percussion. She was given a dose of Toradol in the recovery room. She is to continue her Keflex, Pyridium, and [place] therapy in addition to her usual medications. [facility]
== END 2018-02-13 12:25 | disposition home or self-care (01) ==
LOC: OR 00:12
DX: N36.2 Urethral caruncle (principal)
CPT/HCPCS: 52354; 76000; 87088; C1769; J0690; J1100; J1580; J1885; J2001; J2405; J2704; J3010; J7050; Q9966

== ENCOUNTER → 2018-05-09 | Outpatient (CLI) | payer OTHER ==
[2014-08-03 13:54] VITALS: BMI 27.5
[~2018-05-09] MED LIST changes: +AMLO-113 PO; -AMLO-99 PO; +FAMO-67 PO; +HYDR-385 PO
[2018-05-09 09:26] LABS: PLATELET COUNT, AUTOMATED 410 K/uL (150-450)
== END ==
LOC: LAB 09:13
PROVIDERS: ATTEND Internal Medicine Rheumatology
DX: Z79.899 Other long term (current) drug therapy (principal); M35.00 Sjogren syndrome, unspecified
CPT/HCPCS: 36415; 82565; 84450; 85025; 85651; 86160

== ENCOUNTER → 2018-06-27 | Outpatient (CLI) | payer OTHER ==
[2014-08-03 13:54] VITALS: BMI 27.5
[~2018-06-27] MED LIST changes: -HYDR-4309 PO; +HYDR-653 PO
== END ==
LOC: LAB 09:30
PROVIDERS: ATTEND Internal Medicine Rheumatology
DX: R94.5 Abnormal results of liver function studies (principal); Z79.899 Other long term (current) drug therapy
CPT/HCPCS: 36415; 82040; 82247; 82248; 84075; 84155; 84450; 84460

== ENCOUNTER 2018-09-11 02:21 | Emergency (ER) | payer OTHER ==
[2014-08-03 13:54] VITALS: Wt 76.2 kg
[~2018-09-11 02:21] MED LIST changes: -FLUO-201 PO
--- NOTE | 2018-09-11 02:23 | ER Report ---
History and Physical Time Seen By MD: 02:23 HPI/ROS CHIEF COMPLAINT: Chest pain HISTORY OF PRESENT ILLNESS: 63-year-old female with no significant cardiac history presents with sudden onset of substernal chest pain at 9 PM. It briefly resolved, but then woke her up 30 minutes prior to arrival here. She also notes a severe episode of pain yesterday afternoon and she took a Vicodin 5/325 for pain relief. She notes shortness of breath and diaphoresis as well as nausea. Patient notes pain radiating to her left jaw and her left arm. She notes on arrival, her pain was a 9/10. 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 Patient is active hiker and swimmer. Patient with an allergy to injectable iodine developed a rash after CAT scan contrast REVIEW OF SYSTEMS: Respiratory: No cough, no dyspnea. Cardiovascular: As above Gastrointestinal: No vomiting, no abdominal pain. Musculoskeletal: No back pain. Allergies: Coded Allergies: tamsulosin (Verified Allergy, Severe, SOB, WHEEZING, RASHES, 09/11/18) Sulfa (Sulfonamide Antibiotics) (Verified Allergy, Intermediate, sudden rash w/blisters, SOB, 09/11/18) hydrochlorothiazide (Verified Allergy, Unknown, 09/11/18) ciprofloxacin (Verified Adverse Reaction, Intermediate, severe muscle pain, 09/11/18) Uncoded Allergies: INJECTABLE IODINE (Allergy, Severe, 06/11/09) Home Meds Active Scripts [Acetaminophen] 500 MG TAB No Conflict Check, 500 MG PO Q6H PRN for PAIN, #0 TAB Prov:JADYN SEWELL MD 08/04/14 Reported Medications Fluoxetine Hcl (PROZAC) 10 Mg Capsule, 10 MG PO QDAY, CAPSULE 09/11/18 Hydrocodone Bit/Acetaminophen (HYDROCODON-ACETAMINOPHEN 5-325) 1 Each Tablet, 1 EACH PO Q6H PRN for PAIN, #20 TAB 02/13/18 Famotidine (FAMOTIDINE) 20 Mg Tablet, 20 MG PO BID, #20 TAB 02/13/18 Cephalexin 500 Mg Tab (KEFLEX 500 MG TAB) 500 Mg Tablet, 500 MG PO Q6H, #20 TAB 02/13/18 Phenazopyridine Hcl (PHENAZOPYRIDINE HCL) 200 Mg Tablet, 200 MG PO TID PRN for BURNING WITH URINATION, #20 TAB 02/13/18 Fluticasone/Salmeterol (ADVAIR 100-50 DISKUS) 1 Each Disk.w.dev, 1 EACH IH BID 02/12/18 Ibuprofen (IBUPROFEN) 600 Mg Tablet, 1 TAB PO TID, #50 TAB 02/06/18 Nabumetone (NABUMETONE) 750 Mg Tablet, 750 MG PO BID PRN for PAIN 02/03/18 Duloxetine Hcl (CYMBALTA) 30 Mg Capsule.dr, 30 MG PO QDAY, #5 CAP 01/27/18 Cevimeline Hcl (EVOXAC) 30 Mg Cap, 30 MG PO 1-2XD, CAP 08/02/14 Cetirizine Hcl (Zyrtec) 10 Mg Tablet, 10 MG PO QDAY, 0 Refills 06/11/09 Albuterol (Proventil Inhaler) 17 Gm Inh, 1-2 PUFF INH PRN, 0 Refills 2 PUFFS 06/11/09 Past Medical/Surgical History Hypertension, asthma, acid reflux, frequent urinary tract infection, Sjogren's, skin cancer, pituitary tumor, cholecystectomy, hip replacement, Hx Smoking: No Smoking Status: Never Smoker Reviewed Nurses Notes: Yes Old Medical Records Reviewed: Yes Hx Smoking: No Smoking Status: Never Smoker Exposure to Second Hand Smoke?: Yes (growing up) Hx Substance Use Disorder: No Hx Alcohol Use: No Constitutional Vital Sign - Last 24 Hours 09/11/18 09/11/18 09/11/18 09/11/18 02:21 02:24 02:24 02:26 Pulse ??? 84 88 Resp 22 20 B/P (MAP) 172/109 (130) 172/109 Pulse Ox 96 96 O2 Delivery Room Air 09/11/18 09/11/18 09/11/18 09/11/18 02:26 02:30 02:30 02:36 Pulse 88 61 Resp 20 23 B/P (MAP) 159/105 (123) 159/105 (123) Pulse Ox 96 97 09/11/18 09/11/18 09/11/18 09/11/18 02:36 02:37 02:41 02:41 Pulse 61 83 83 Resp 23 12 12 Pulse Ox 97 97 97 O2 Flow Rate 2.0 09/11/18 09/11/18 09/11/18 09/11/18 02:42 02:42 02:50 02:50 B/P (MAP) 154/97 (116) 154/97 (116) 149/88 (108) 149/88 (108) 09/11/18 09/11/18 09/11/18 09/11/18 02:51 02:51 03:00 03:00 Pulse 80 80 Resp 19 19 B/P (MAP) 150/90 (110) 150/90 (110) Pulse Ox 94 94 09/11/18 09/11/18 09/11/18 09/11/18 03:01 03:01 03:06 03:06 Pulse 78 78 83 83 Resp 31 31 24 24 Pulse Ox 94 94 96 96 09/11/18 09/11/18 09/11/18 09/11/18 03:10 03:10 03:11 03:11 Pulse 85 85 Resp 11 11 B/P (MAP) 153/100 (117) 153/100 (117) Pulse Ox 96 96 09/11/18 09/11/18 09/11/18 09/11/18 03:16 03:16 03:18 03:18 Pulse 87 87 Resp 13 13 B/P (MAP) 144/86 (105) 144/86 (105) Pulse Ox 95 95 09/11/18 09/11/18 09/11/18 09/11/18 03:23 03:28 03:30 03:33 Pulse 93 90 91 Resp 9 13 10 B/P (MAP) 166/99 (121) 171/96 (121) Pulse Ox 84 95 95 09/11/18 03:38 Pulse 96 Resp 12 Pulse Ox 94 Physical Exam General Appearance: The patient is alert, has no immediate need for airway protection and no current signs of toxicity., Pale appearing, skin warm and dry, moderate distress, 8 out of 10 substernal chest pain Eyes: Pupils equal and round no injection. Respiratory: Chest is non tender, lungs are clear to auscultation. Cardiac: regular rate and rhythm, no murmur Gastrointestinal: Abdomen is soft and non tender, no masses, bowel sounds normal. Musculoskeletal: Neck: Neck is supple and non tender. Extremities have full range of motion and are non tender. No edema Skin: No rashes or lesions. DIFFERENTIAL DIAGNOSIS: After history and physical exam differential diagnosis was considered for chest pain including but not limited to myocardial ischemia, pericarditis pulmonary embolus, chest wall pain, pleural inflammation and pulmonary infectious causes. Medical Decision Making Data Points Result Diagram: 09/11/186 09/11/18225 Laboratory Hematology Test 09/11/18 02:26 Red Blood Count 5.17 M/uL (4.17-5.56) Mean Corpuscular Volume 101.1 fL (80.0-96.0) Mean Corpuscular Hemoglobin 34.1 pg (26.0-33.0) Mean Corpuscular Hemoglobin Concent 33.7 g/dL (32.0-36.0) Red Cell Distribution Width 13.1 % (11.5-14.5) Mean Platelet Volume 7.4 fL (7.2-11.1) Neutrophils (%) (Auto) 64.7 % (39.4-72.5) Lymphocytes (%) (Auto) 21.4 % (17.6-49.6) Monocytes (%) (Auto) 10.6 % (4.1-12.4) Eosinophils (%) (Auto) 2.6 % (0.4-6.7) Basophils (%) (Auto) 0.7 % (0.3-1.4) Nucleated RBC Relative Count (auto) 0.1 /100WBC Neutrophils # (Auto) 8.3 K/uL (2.0-7.4) Lymphocytes # (Auto) 2.8 K/uL (1.3-3.6) Monocytes # (Auto) 1.4 K/uL (0.3-1.0) Eosinophils # (Auto) 0.3 K/uL (0.0-0.5) Basophils # (Auto) 0.1 K/uL (0.0-0.1) Nucleated RBC Absolute Count (auto) 0.01 K/uL Peripheral Blood Smear No Y/N Sodium Level 141 mmol/L (137-145) Potassium Level 4.0 mmol/L (3.5-5.0) Chloride Level 105 mmol/L (98-107) Carbon Dioxide Level 26 mmol/L (22-31) Blood Urea Nitrogen 22 mg/dl (7-18) Creatinine 0.80 mg/dl (0.52-1.04) Glomerular Filtration Rate Calc > 60.0 Random Glucose 119 mg/dl (75-110) Calcium Level 10.6 mg/dl (8.4-10.2) Total Bilirubin 0.5 mg/dl (0.2-1.3) Aspartate Amino Transf (AST/SGOT) 44 U/L (0-35) Alanine Aminotransferase (ALT/SGPT) 66 U/L (0-56) Alkaline Phosphatase 170 U/L (0-126) Troponin I 0.045 ng/ml Total Protein 7.2 g/dl (6.3-8.2) Albumin 4.5 g/dl (3.5-5.0) Chemistry Test 09/11/18 02:26 White Blood Count 12.9 k/uL (4.5-11.0) Red Blood Count 5.17 M/uL (4.17-5.56) Hemoglobin 17.6 g/dL (12.0-16.0) Hematocrit 52.2 % (34.0-47.0) Mean Corpuscular Volume 101.1 fL (80.0-96.0) Mean Corpuscular Hemoglobin 34.1 pg (26.0-33.0) Mean Corpuscular Hemoglobin Concent 33.7 g/dL (32.0-36.0) Red Cell Distribution Width 13.1 % (11.5-14.5) Platelet Count 425 K/uL (150-450) Mean Platelet Volume 7.4 fL (7.2-11.1) Neutrophils (%) (Auto) 64.7 % (39.4-72.5) Lymphocytes (%) (Auto) 21.4 % (17.6-49.6) Monocytes (%) (Auto) 10.6 % (4.1-12.4) Eosinophils (%) (Auto) 2.6 % (0.4-6.7) Basophils (%) (Auto) 0.7 % (0.3-1.4) Nucleated RBC Relative Count (auto) 0.1 /100WBC Neutrophils # (Auto) 8.3 K/uL (2.0-7.4) Lymphocytes # (Auto) 2.8 K/uL (1.3-3.6) Monocytes # (Auto) 1.4 K/uL (0.3-1.0) Eosinophils # (Auto) 0.3 K/uL (0.0-0.5) Basophils # (Auto) 0.1 K/uL (0.0-0.1) Nucleated RBC Absolute Count (auto) 0.01 K/uL Peripheral Blood Smear No Y/N Glomerular Filtration Rate Calc > 60.0 Calcium Level 10.6 mg/dl (8.4-10.2) Total Bilirubin 0.5 mg/dl (0.2-1.3) Aspartate Amino Transf (AST/SGOT) 44 U/L (0-35) Alanine Aminotransferase (ALT/SGPT) 66 U/L (0-56) Alkaline Phosphatase 170 U/L (0-126) Troponin I 0.045 ng/ml Total Protein 7.2 g/dl (6.3-8.2) Albumin 4.5 g/dl (3.5-5.0) EKG/Imaging EKG Interpretation 12 lead EK Rhythm: normal sinus rhythm Norris: normal QRS: normal ST segments: ST elevation in the anterior and lateral leads of 2-[address] depression of 2 mm in the inferior leads. Patient has no previous EKGs 12 lead EKG: Repeat EKG 0306 Rhythm: normal sinus rhythm Norris: normal QRS: normal ST segments: There is normalization of some of the ST segments. There is still some residual ST elevation in V1 through V3 and reciprocal changes in the inferior leads. The lateral ST elevation. His deep creased with inversion of the T-wave showing some improvement Imaging X-ray: Single view portable chest x-ray was obtained. I viewed the images myself on the PACS system. My interpretation of the images is: No infiltrate, no effusion, normal mediastinum. The radiologist interpretation had no clinically significant variation from this interpretation. ED Course/Re-evaluation Clinical Indication for ER IV: Hydration, IV Access ED Course Patient was admitted to an examination room. H&P was done. The differential diagnoses was considered. On clinical examination. Patient's initial EKG shows findings consistent with an acute STEMI of the anterior wall of the heart. 2 peripheral IVs are established immediately. She's placed on supplemental O2. Aspirin and nitroglycerin are administered. Patient is evaluated for thromboly tic therapy. The checklist is completed and she has no risk factors. She does have a history of a pituitary adenoma which was removed many years ago. Patient was administered, TNKase, heparin, Plavix 300 mg and Nitropaste 1 inch topically. She also received Zofran 4 mg for vomiting. 09/11/2018 2:55:52 am case discussed with cardiology on-call, Dr. Delarosa at [facility] who accepts the patient for transfer to her facility. Decision to Disposition Date: Sep 11, 2018 Decision to Disposition Time: 02:55 Critical Care Time I spent a total of 90 minutes of critical care time in obtaining history, performing a physical exam, bedside monitoring of interventions, collecting and interpreting tests and discussion with consultants but not including time spent performing procedures. Depart Departure Latest Vital Signs Vital Signs Date Time Temp Pulse Resp B/P (MAP) Pulse Ox O2 Delivery O2 Flow Rate FiO2 09/11/18 03:38 96 12 94 09/11/18 03:30 171/96 (121) 09/11/18 02:37 2.0 09/11/18 02:24 Room Air Impression: Primary Impression: STEMI (ST elevation myocardial infarction) Condition: Improved Disposition: HOME OR SELF-CARE Referrals: TAI EAGLE DO (PCP) Problem Qualifiers Primary Impression: STEMI (ST elevation myocardial infarction) Involved coronary artery: LAD coronary artery Qualified Codes: I21.02 - ST elevation (STEMI) myocardial infarction involving left anterior descending coronary artery KIAH ZAMORA DO Sep 11, 2018 02:23
[2018-09-11] MEDS ORDERED: FLUO-201 PO (02:26)
[2018-09-11] MEDS ORDERED: ASPIRIN 81 MG CHEW ONE (02:30)
[2018-09-11] MEDS ORDERED: NITROGLYCERIN 0.4 MG SUBL SL ONE (02:30)
[2018-09-11] MEDS ORDERED: STEMI KIT(*) 0 EA ONE (02:34)
[2018-09-11] MEDS ORDERED: TENECTEPLASE 50 MG KIT IVP ONE (02:35)
[2018-09-11] MEDS ORDERED: MORPHINE 2 MG/ML SYR IVP ONE (02:35)
[2018-09-11] MEDS ORDERED: ONDANSETRON 4 MG/2 ML VIAL IVP ONE ×2 (02:35→03:40)
[2018-09-11] MEDS ORDERED: CLOPIDOGREL BISULFATE 75MG TAB PO ONE (02:35)
[2018-09-11 02:45] LABS: PLATELET COUNT, AUTOMATED 425 K/uL (150-450)
[2018-09-11] MEDS ORDERED: HEPARIN* SOD/D5W 25000 U/500ML 500 ML IV ONE (02:53)
--- NOTE | 2018-09-11 02:53 | RADIOLOGY IMAGING REPORT ---
FACILITY: [facility] PATIENT NAME: Analisa Espinosa : 1955 MR: [id number] V: [id number] EXAM DATE: ORDERING PHYSICIAN: KIAH ZAMORA TECHNOLOGIST: Location: [facility] Patient: Analisa Espinosa : 1955 Visit/Account:[id number] Date of Sevice: 09/11/2018 CHEST SINGLE AP 09/11/2018 02:34 hours. HISTORY: ST elevation HI. Chest pain. COMPARISON: 11/01/2016 and studies dating to 06/11/2009. TECHNIQUE: Portable AP view of the chest. FINDINGS: Tubes/lines/hardware: There are external chest leads. Pulmonary: There is mild prominence and indistinctness to the interstitium. There is stable scarring or atelectasis at the left costophrenic angle. There is no pneumothorax or pleural effusion. Cardiomediastinal: Cardiac and mediastinal silhouettes are within normal limits. Bones/soft tissues: No acute osseous abnormality. The visible abdomen is normal. IMPRESSION: 1. Mild prominence and indistinctness of the interstitium suggests mild pulmonary edema, new. 2. Stable scarring or atelectasis at the left costophrenic angle. Report Dictated By: Lena Patricia at 09/11/2018 2:47 AM Report E-Signed By: Lena Patricia at 09/11/2018 2:49 AM WSN:[id number]
[2018-09-11] MEDS ORDERED: HEPARIN (PORC) 5000 UN/ML VIAL IVP ONE (02:55)
[2018-09-11] MEDS ORDERED: NITROGLYCERIN OINT 1 GM PKT TP ONE (03:05)
[2018-09-11 03:30] VITALS: BP 171/96
[2018-09-11] MEDS ORDERED: NS(*) 0.9% 1000 ML BAG 1,000 ML IV ONE (03:35)
[2018-09-11] MEDS ORDERED: NITROGLYCERN* 50 MG/D5W 250 ML 250 ML ONE (03:44)
--- NOTE | 2018-09-11 04:51 | EKG ---
FACILITY: [facility] - [place] PATIENT NAME: WOO APARICIO : [id number] MR: [id number] V: [id number] EXAM DATE: ORDERING PHYSICIAN: KIAH ZAMORA TECHNOLOGIST: EDWARDO Rivera Reason : REPEAT EKG Blood Pressure : / mmHG Vent. Rate : 081 BPM Atrial Rate : 081 BPM P-R Int : 118 ms QRS Dur : 068 ms QT Int : 348 ms P-R-T Axes : 062 077 071 degrees QTc Int : 404 ms Normal sinus rhythm st elevation in anterolateral leads Abnormal ECG When compared with ECG of 11-SEP-2018 02:26, ST less elevated in Anterolateral leads T wave inversion now evident in Anterolateral leads Confirmed by GARRY MISTRY ([id number]) on 09/11/2018 6:42:15 AM Referred By: Confirmed By:GARRY MISTRY
--- NOTE | 2018-09-11 04:51 | EKG ---
FACILITY: [facility] - [place] PATIENT NAME: WOO APARICIO : [id number] MR: [id number] V: [id number] EXAM DATE: ORDERING PHYSICIAN: KIAH ZAMORA TECHNOLOGIST: EDWARDO Test Reason : REPEAT AGAIN Blood Pressure : / mmHG Vent. Rate : 093 BPM Atrial Rate : 093 BPM P-R Int : 120 ms QRS Dur : 068 ms QT Int : 344 ms P-R-T Axes : 043 046 058 degrees QTc Int : 427 ms Normal sinus rhythm Anterior infarct , age undetermined T wave abnormality, consider lateral ischemia Abnormal ECG When compared with ECG of 11-SEP-2018 03:04, ST no longer elevated in Anterior leads Confirmed by GARRY MISTRY ([id number]) on 09/11/2018 6:42:31 AM Referred By: Confirmed By:GARRY MISTRY
--- NOTE | 2018-09-11 04:51 | EKG ---
FACILITY: [facility] PATIENT NAME: WOO APARICIO : [id number] MR: [id number] V: [id number] EXAM DATE: ORDERING PHYSICIAN: KIAH ZAMORA TECHNOLOGIST: EDWARDO Test Reason : CP Blood Pressure : / mmHG Vent. Rate : 080 BPM Atrial Rate : 080 BPM P-R Int : 108 ms QRS Dur : 076 ms QT Int : 364 ms P-R-T Axes : 061 069 042 degrees QTc Int : 419 ms Sinus rhythm with sinus arrhythmia with short MN ST elevation, consider anterolateral injury or acute infarct ACUTE MN Abnormal ECG No previous ECGs available Confirmed by GARRY MISTRY ([id number]) on 09/11/2018 6:38:34 AM Referred By: Confirmed By:GARRY MISTRY
== END 2018-09-11 04:02 | disposition short-term general hospital (02) ==
LOC: ER 02:38
DX: I21.02 ST elevation (STEMI) myocardial infarction involving left anterior descending coronary artery (principal)
CPT/HCPCS: 71045; 84484; 85025; 93005; 96361; 96365; 96375; 96376; 99291; 99292; J1644; J2270; J2405; J3101; J3490; J7030; 82040; 82247; 82310; 82374; 82435; 82565; 82947; 84075; 84132; 84155; 84295; 84450; 84460; 84520

== ENCOUNTER → 2018-09-11 | Outpatient (REF) ==
[2014-08-03 13:54] VITALS: BMI 27.5
[~2018-09-11] MED LIST changes: -AMLO-113 PO; +AMLO-127 PO; +FLUO-201 PO
== END ==
LOC: AMB 02:58
PROVIDERS: ATTEND Nurse Practitioner
DX: Z02.9 Encounter for administrative examinations, unspecified (principal)

== ENCOUNTER 2018-12-12 10:00 | Outpatient (RCR) | payer OTHER ==
[2014-08-03 13:54] VITALS: BMI 27.5
[2018-09-16 16:11] VITALS: BP 138/82
[2018-09-16 16:12] VITALS: BP 138/82
--- NOTE | 2018-09-16 16:44 | CARDIAC REHAB PLAN OF CARE ---
Physician: Melchor aCrbajal MD Patient is being seen: Kathy Harp Medical Diagnosis: STEMI; Stent x 1 Date of Onset: 09/11/18 Date of Initial Evaluation: 09/16/18 INTERVENTIONS: Due Date: 10/17/18 Patient Assessment: Patient is a 63 yr old woman who comes to cardiac rehab following a STEMI and Stent placement x 1 on 09/11/17. She is overweight (30kg/m2) and has a history of untreated hypertension and untreated high cholesterol. She also has a medical history of asthma, sleep apnea, and depression. She initially was unmotivated to begin the CR program, but has since gained interest and voices excitement to join. Exercise Assessment: During her 6-Minute Walk test she walked a total of 1225ft for an average speed of 2.3mph. She denied any angina or SOB. Her average HR was 100-120bpm with SPO2 of 89-90%. While using the exercise equipment she chose to use the Elliptical and Upright Stationary Bike. She felt good on both machines, with her HR averaging between 120-135bpm. ECG showed possible wandering atrial pacemaker at rest, within a regular rhythm. At one point her HR accelerated to 145bpm, during which her ECG showed slight ST depression with no coinciding symptoms. Exercise Plan: Goals: Goals will be to determine cardiovascular safety at different levels of exercise intensity such to increase the patients confidence and reassurance of safety at different exercise levels. Eventually we will migrate to using interval training during her aerobic training sessions Exercise Prescription: Mode: Stationary bike and elliptical Frequency: 3 days / week (MWF) Duration: 40+ minutes Intensity: THR 115-135bpm pending normal hemodynamic response Education: Education will be the importance of determining safety first before returning to regular exercise intensity. Exercise Reassessment (Date: ): Exercise Discharge/Follow-Up (Date: ): Nutrition Assessment: Patient reports eating primarily according to the Mediterranean diet, however her knowledge of her diet does appear to be skewed and could use some intervention. She eats primarily for conveniencereporting not liking to prepare food. She eats lean meats and easily accessible grains and not a lot of vegetables. She admits that her main default is to snack on sugary foods (e.g. cookies and ice cream). Nutrition Plan: Goals: Goals will be to first develop some healthy and convenient alternatives she can eat which does not require much preparation. Secondly, we will aim to replace her sugar cravings with healthier alternatives. The patient has also set the goal to lose ~5% of her body mass, which equals approximately 8lbs. Intervention: Intervention with first requires a food diary in order to track exactly her nutritional intake. Secondly, we will analyze her nutritional intake and see where we can make alternative suggestions. Education: Education will focus on healthy recipes that do not require much preparationwith emphasis on vegetables and whole grains. Nutrition Reassessment (Date: ): Nutrition Discharge/Follow-Up (Date: ): Psychosocial Assessment: Patient expresses concern about her psychosocial state. She scored high (16/21) for depression on the hospital anxiety and depression scale (HADS) assessment. 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 She is on several psych medications aiming towards anti- depression. It is likely that this stress has played a role in her recent cardiac event. The patient also talked about how she is scared to begin exercising and moving againafraid that she will have another heart attack. Psychosocial Plan: Goals: Our first goal is to help instill self confidence in the patient and her ability to perform exercise and daily tasks safely and help discover healthy ways for her to relieve her stress so that is does not affect her physiologically. Intervention: Our intervention will be to provide a safe and healthy learning and exercise environment. She does not receive much social interaction, so this will be her primary social contact during the week and it needs to remain involved and positive. Education: Education will focus on the importance of psychological stress management and how it can improve overall quality of life and cardiovascular health. Physician Signature: Date: MTDD
[2018-09-19 12:44] VITALS: BP_SYST 112; BP_SYST 120; BP_DIAS 62
[2018-09-24 12:49] VITALS: BP 128/80
[2018-09-24 12:50] VITALS: BP 122/68
[2018-09-27 11:30] VITALS: BP 114/64
[2018-09-27 11:32] VITALS: BP 118/66
[2018-09-29 17:10] VITALS: BP 120/72
[2018-09-29 17:11] VITALS: BP 112/64
[2018-10-01 16:46] VITALS: BP 112/72
[2018-10-01 16:47] VITALS: BP 118/70
[2018-10-03 13:01] VITALS: BP 122/76
[2018-10-03 13:02] VITALS: BP 128/82
[2018-10-08 15:55] VITALS: BP 102/70
[2018-10-08 15:56] VITALS: BP 104/68
[2018-10-10 13:22] VITALS: BP 102/64
[2018-10-10 13:23] VITALS: BP 102/68
[2018-10-13 18:02] VITALS: BP 106/68
[2018-10-13 18:03] VITALS: BP 130/68
--- NOTE | 2018-10-16 10:54 | CARDIAC REHAB PLAN OF CARE ---
Physician: Melchor Carbajal MD Patient is being seen: Kathy Harp Medical Diagnosis: STEMI; Stent x 1 Date of Onset: 09/11/18 Date of Initial Evaluation: 09/16/18 Date patient was last seen: 10/13/18 Number of treatments: 10 Number of cancellations/No Shows: 2 INTERVENTIONS: Due Date: 11/13/18 Exercise Reassessment (Date: 10/16/18): The patient has been making positive progress during her first month at cardiac rehab. At first, she was relatively resistant to our input but has since started to value the program and the information and education provided within it. She reports regularly exercising on her days away from rehabeither biking, hiking, or swimming. She has progressed to 35 minutes of exercise on average, with 20 of the minutes dispersed by interval training on the elliptical. One area of concern is the patients fixation on RPM when it comes to exercise. She focuses on maintaining a certain RPM rather than a THR or MET level. We have been educating her on this information and hope to switch her focus towards actual physical exertion level rather than michelle. Over the next month, the patients goals will be to: 1.Continue doing interval training on the elliptical and continuous training on the bike for a total of 40 minutes/session. 2.Maintain within her THR range during all period of exercise (warm up and cool down excluded)THR: 115-135bpm We will also aim to education the patient more on the importance of Heart Rate for exercise rather than RPM and michelle. Nutrition Reassessment (Date: 10/16/18): The patient has been somewhat elusive with dietary conversation. She reports eating a well-balanced and healthy diet, while simultaneously reports she eats convenience type foods. This past month we focused on exerciseonce the patient has a well-grounded grasp on our expectations for exercise we will focus on diet and stress management. Our first main goal with nutrition is to get a foundational understanding of the patients actual dietary intakeideally with the help of a food journal. Psychosocial Reassessment (Date: 10/16/18): In terms of stress level, at her initial eval the patient expressed significant stress and depression. During her first few sessions, she was very reliant on the staff to help her and combative about information being provided. Since then, she has made stride towards more positive interactions while at rehabilitation and has become more receptive towards receiving and understanding information and education provided. Over the next month, we will continue to grow and foster this relationship to create a safe exercise and learning environment that achieves the patients needs. Physician Signature: Date: MTDD
[2018-10-17 12:55] VITALS: BP 106/66
[2018-10-17 12:56] VITALS: BP 110/70
[2018-10-20 13:11] VITALS: BP_SYST 128; BP_SYST 130; BP_DIAS 78; BP_DIAS 80
[2018-10-22 12:51] VITALS: BP_SYST 108; BP_SYST 118; BP_DIAS 64; BP_DIAS 66
[2018-10-24 17:22] VITALS: BP 118/68
[2018-10-24 17:23] VITALS: BP 122/82
[2018-10-29 16:06] VITALS: BP_SYST 102; BP_SYST 115; BP_DIAS 74; BP_DIAS 80
[2018-10-31 13:01] VITALS: BP 128/76
[2018-10-31 13:02] VITALS: BP 120/80
[2018-11-03 12:55] VITALS: BP_SYST 130; BP_SYST 132; BP_DIAS 84; BP_DIAS 92
[2018-11-05 12:58] VITALS: BP_SYST 112; BP_SYST 128; BP_DIAS 70; BP_DIAS 72
[2018-11-08 10:02] VITALS: BP 104/68
[2018-11-08 10:03] VITALS: BP 124/70
--- NOTE | 2018-11-11 14:34 | CARDIAC REHAB PLAN OF CARE ---
Physician: Melchor Carbajal MD Patient is being seen: Katiuska Kathy SIMMONS Medical Diagnosis: STEMI; STENT x 1 Date of Onset: 09/11/18 Date of Initial Evaluation: 09/16/18 Date patient was last seen: 11/07/18 Number of treatments: 19 Number of cancellations/No Shows: 4 INTERVENTIONS: Due Date: 12/12/18 Exercise Reassessment (Date: 11/11/18): The patient successfully achieved her primary goal over the past month which was to exercise for at least a total of 40 minutes. She has continuously done a moderate level continuous exercise on the bike for 25 minutes followed by 3 5-minute vigorous level intervals on the elliptical. This seems to be a good combination for her and give her the exercise intensity she desires. However she has not been as successful with achieving her THR goals (115- 135bpm). On the elliptical she does not struggle to meet this THR zone, but she stays well below it (100-110bpm) on the bike. This is an improvement from last month when her average HR was in the 70-90bpm range on the bike, so we hope to continue this progress over the next month and achieve her true THR. Nutrition Reassessment (Date: 11/11/18): Patient has had no update with dietary information. We have discussed nutrition basics and have regular conversations with her about her diet, but whether or not she is making changes is not known. We have provided healthy recipes as options to the patient. Psychosocial Reassessment (Date: 11/11/18): Patient has really improved in her overall demeanor and openness since she has started the CR program. She is much more inviting, talkative, and open to information and questions which shows a tremendous improvement in her motivation. We hope to focus this next month on how to improve stress levels in other ways aside from exerciseways she can intervene with while at work or out in the community. DALE
[2018-11-14 12:49] VITALS: BP 120/52
[2018-11-14 12:50] VITALS: BP 122/78
[2018-11-17 12:48] VITALS: BP_SYST 118; BP_SYST 126; BP_DIAS 70; BP_DIAS 74
[2018-11-19 12:58] VITALS: BP_SYST 115; BP_SYST 122; BP_DIAS 78
[2018-11-24 17:45] VITALS: BP 132/84
[2018-11-24 17:47] VITALS: BP 120/78
[2018-11-26 15:56] VITALS: BP 115/72
[2018-11-26 16:03] VITALS: BP 110/64
[2018-12-03 12:52] VITALS: BP_SYST 124; BP_SYST 126; BP_DIAS 68; BP_DIAS 78
[2018-12-06 11:50] VITALS: BP 118/68
[2018-12-06 11:51] VITALS: BP 120/80
[2018-12-10 16:47] VITALS: BP 122/78
[2018-12-10 16:50] VITALS: BP 122/74
--- NOTE | 2018-12-11 10:47 | CARDIAC REHAB PLAN OF CARE ---
Physician: Melchor Carbajal MD Patient is being seen: Katiuska Kathy SIMMONS Medical Diagnosis: STEMI; STENT x 1 Date of Onset: 09/11/18 Date of Initial Evaluation: 09/16/18 Date patient was last seen: 12/10/18 Number of treatments: 27 Number of cancellations/No Shows: 6 Due Date: 01/10/19 Exercise Reassessment (Date: 12/11/18): Patient has made great progress in achieving her THR zone during her CR exercise sessions. She has increased her exercising HR on the bike to 110-122bpm on average, which is well within her target zone and increased from last month. She continues to increase her intensity on the elliptical as well as her HR now achieves upwards of 149bpm during her HIIT intervals. Her BP response is still well within normal exercising limits (peaked at 144/62mmHg). We hope to continue on this trend during her last month at rehab and help establish safe exercise guidelines she can take with her once she graduates. Nutrition Reassessment (Date: 12/11/18): No information to report. Patient continues to eat similar diet to when she started, but has received nutritional information and healthy recipes to take home. No update on weight loss goals, but we plan to weigh the patient upon her discharge in the next month. Psychosocial Reassessment (Date: 12/11/18): Patient appears to be overall more upbeat than her initial evaluation. She gets outside more often to do activities and exercise and she reports this helps keep her positive and sane. She enjoys the social dynamic of exercise class and it has appeared to help uplift her anxiety and depressive symptoms. DALE
[~2018-12-12 10:00] MED LIST changes: +FLUO-201 PO
[2018-12-12 12:56] VITALS: BP 132/80
[2018-12-12 12:57] VITALS: BP 120/80
== END 2018-12-15 ==
LOC: CARD 10:00
PROVIDERS: ATTEND Internal Medicine Cardiovascular Disease
DX: I25.2 Old myocardial infarction (principal); I10 Essential (primary) hypertension; E78.00 Pure hypercholesterolemia, unspecified; Z98.890 Other specified postprocedural states; J45.909 Unspecified asthma, uncomplicated; G47.30 Sleep apnea, unspecified; F32.9 Major depressive disorder, single episode, unspecified; I25.10 Atherosclerotic heart disease of native coronary artery without angina pectoris; Z96.649 Presence of unspecified artificial hip joint
CPT/HCPCS: 93798

== ENCOUNTER 2019-01-16 10:00 | Outpatient (RCR) | payer OTHER ==
[2014-08-03 13:54] VITALS: BMI 27.5
[2018-12-19 17:53] VITALS: BP 116/78
[2018-12-19 17:56] VITALS: BP 118/68
[2018-12-24 13:19] VITALS: BP 118/70
[2018-12-24 13:20] VITALS: BP 128/82
[2018-12-26 12:57] VITALS: BP 130/76
[2018-12-26 12:59] VITALS: BP 122/76
[2018-12-29 12:53] VITALS: BP 135/90
[2018-12-29 12:54] VITALS: BP 152/84
[2018-12-31 12:40] VITALS: BP 126/82
[2018-12-31 12:41] VITALS: BP 118/78
[2019-01-02 13:35] VITALS: BP 123/78
[2019-01-02 13:39] VITALS: BP 144/82
[2019-01-07 18:08] VITALS: BP 118/78
[2019-01-07 18:10] VITALS: BP 110/70
[2019-01-09 13:03] VITALS: BP 136/80
[2019-01-09 13:04] VITALS: BP 130/90
--- NOTE | 2019-01-16 15:46 | CARDIAC REHAB PLAN OF CARE ---
Physician: Melchor Carbajal MD Patient is being seen: Kathy Harp MS Medical Diagnosis: STEMI; STENT x 1 Date of Onset: 09/11/18 Date of Initial Evaluation: 09/16/18 INTERVENTIONS: Due Date: 01/16/19 Exercise Discharge/Follow-Up (Date: 01/16/19): The patient competed all 36 sessions of her Phase II CR program. She was active prior to coming to CR, thus our primary goal was to assess her ECG and hemodynamic response and safety during exertion and cardiovascular stress. Aside from a few sessions in which her SBP glenis above 220mmHg, her response was within normal limits for the majority of the time, even during her high intensity intervals on the elliptical. From initial eval to discharge, she improved in her 6 minute walk test time by 100ft, demonstrating an 8% increase. The patient reports that she believes her time in rehab was worthwhile and that she learned a lot. She understands that our personnel are always available to talk with her in the future about any questions or concerns she may have related to physical activity and heart health. Nutrition Discharge/Follow-Up (Date: 01/16/19): Patient leaves rehab eating relatively the same diet as she initiated with. She eats convenience foods, but does try to go for healthier options when available. Over the course of her program she did receive numerous handouts and discussions related to healthy nutrition and overall dietary intake. Psychosocial Discharge/Follow-Up (Date: 01/16/19): Patient came to cardiac rehab with poor psychological status. She was very angry about life in generalher cardiac event, her job, her health status, etc. She was very reserved and frustrated for her first few weeks in CR and this is supported by her HADS assessment in which she scored 16/21 (high) for depression and 6/21 for anxiety. Upon her discharge her scores both decreased to 12/21 for depression and 4/21 for anxiety. This accurately represents the improvement in her psychosocial health that we as a cardiac staff have witnessed. She is much more positive, social, and engaged during her time here. She talks about things much more optimistically than she did prior. Our encouragement to her upon her discharge was to stay active and to find some other physical activity group- minded settings in which she could engage to help provide that social support. DALE
== END 2019-01-16 14:22 | disposition home or self-care (01) ==
LOC: CARD 10:00
PROVIDERS: ATTEND Internal Medicine Cardiovascular Disease
DX: I25.2 Old myocardial infarction (principal); Z95.5 Presence of coronary angioplasty implant and graft
CPT/HCPCS: 93798

== ENCOUNTER 2019-01-23 10:15 | Emergency (ER) | payer OTHER ==
[2014-08-03 13:54] VITALS: Wt 77.1 kg
--- NOTE | 2019-01-23 12:04 | RADIOLOGY IMAGING REPORT ---
FACILITY: [facility] - [place], [place] PATIENT NAME: Analisa Espinosa : 1955 MR: [id number] V: [id number] EXAM DATE: ORDERING PHYSICIAN: LEYLA MISHRA TECHNOLOGIST: Location: [facility] - [place] Patient: Analisa Espinosa : 1955 Visit/Account:[id number] Date of Sevice: 01/23/[address] scan without contrast COMPARISONS: Head CT scan without contrast dated October 30, 2016 ADDITIONAL PERTINENT HISTORY: Fall with headache and facial lacerations TECHNIQUE: Multiple axial images were obtained from the skull base to the vertex without IV contrast . One of the following dose optimization techniques was utilized in the performance of this exam: Aut omated exposure control; adjustment of the mA and/or kV according to the patient's size; or use of an iterative reconstruction technique. Specific details can be referenced in the facility's radiology CT exam operational policy. FINDINGS: Midline shift: Negative Ventricles: Negative Brain parenchyma: Patchy hypoattenuation within the periventricular and subcortical white matter, no nspecific but likely representing small vessel ischemic change on a chronic basis. No intraparenchym al hemorrhage or mass effect. Extra-axial spaces: Negative Intracranial vasculature: Cavernous internal carotid artery calcifications. Otherwise negative Osseous structures: Negative Paranasal sinuses and mastoid air cells: Complete opacification of the right sphenoid sinus. Surrounding soft tissues and orbits: Midline frontal scalp soft tissue hematoma and laceration. IMPRESSION: 1. Midline frontal scalp soft tissue laceration and hematoma. 2. Age related changes as described above. 3. No evidence of acute intracranial pathology. Report Dictated By: Vincent Townsend MD at 01/23/2019 11:56 AM Report E-Signed By: Vincent Townsend MD at 01/23/2019 12:00 PM WSN:[id number]
--- NOTE | 2019-01-23 12:07 | RADIOLOGY IMAGING REPORT ---
FACILITY: [facility] PATIENT NAME: Analisa Espinosa : 1955 MR: [id number] V: [id number] EXAM DATE: ORDERING PHYSICIAN: LEYLA MISHRA TECHNOLOGIST: [facility] Patient: Analisa Espinosa : 1955 Visit/Account:[id number] Date of Sevice: 01/23/2019 CT VERTEBRA CERVICAL (NON CON) COMPARISONS: None. ADDITIONAL PERTINENT HISTORY: Fall with headache and facial lacerations. TECHNIQUE: Multiple axial images were obtained from the skull base through the upper thoracic spine with coronal and sagittal reformatted images obtained without IV contrast. One of the following dose optimization techniques was utilized in the performance of this exam: Automated exposure control; adj ustment of the mA and/or kV according to the patient's size; or use of an iterative reconstruction t echnique. Specific details can be referenced in the facility's radiology CT exam operational policy. FINDINGS. Vertebral body heights and alignment: Straightening of normal cervical lordosis. Otherwise negative Vertebral bodies: Anteriorly and posteriorly directed osteophytes at multiple levels with facet hyper trophic changes. No bony fractures. Disc spaces: Disc space narrowing at multiple levels. Cranial cervical junction: Negative. Cervical thoracic junction: Negative. Surrounding soft tissues: Negative. Lung apices: Negative. IMPRESSION: 1. Spondylitic change involving the cervical spine. 2. No acute appearing bony abnormalities. Report Dictated By: Vincent Townsend MD at 01/23/2019 12:00 PM Report E-Signed By: Vincent Townsend MD at 01/23/2019 12:03 PM WSN:[id number]
[2019-01-23] MEDS ORDERED: DIPHTH/TETANUS/ACEL. PERTUSSIS IM ONLY ONE (12:30)
--- NOTE | 2019-01-23 12:45 | ER Report ---
History and Physical Time Seen By MD: 10:45 Hx. of Stated Complaint: fell while hikinh and hit right forehead on rock. on blood thinners. HPI/ROS CHIEF COMPLAINT: Head injury HISTORY OF PRESENT ILLNESS: Patient is a 63-year-old female who presents the ED with a complaint of head injury that occurred about an hour and a half ago. Patient states that she was out hiking and tripped and fell onto a rock. She states that she was able to brace herself with her hands prior to hitting her head. She does not believe she had her head hard. She is complaining of a h eadache now and denies any neck pain, chest pain, shortness of breath. She states that she is on Plavix and is concerned about this. She states that her last tetanus vaccination was in 2014. Patient denies any weakness, dizziness, nausea, vomiting. REVIEW OF SYSTEMS: Constitutional: No fever, no chills. Eyes: No discharge. ENT: No sore throat. Cardiovascular: No chest pain, no palpitations. Respiratory: No cough, no shortness of breath. Gastrointestinal: No abdominal pain, no vomiting. Genitourinary: No hematuria. Musculoskeletal: No back pain. Skin: See history of present illness. Neurological: See history of present illness. Allergies: Coded Allergies: tamsulosin (Verified Allergy, Severe, SOB, WHEEZING, RASHES, 09/11/18) Sulfa (Sulfonamide Antibiotics) (Verified Allergy, Intermediate, sudden rash w/blisters, SOB, 09/11/18) hydrochlorothiazide (Verified Allergy, Unknown, 09/11/18) ciprofloxacin (Verified Adverse Reaction, Intermediate, severe muscle pain, 09/11/18) Uncoded Allergies: INJECTABLE IODINE (Allergy, Severe, 06/11/09) Home Meds Active Scripts [Acetaminophen] 500 MG TAB No Conflict Check, 500 MG PO Q6H PRN for PAIN, #0 TAB Prov:JADYN SEWELL MD 08/04/14 Reported Medications Fluoxetine Hcl (PROZAC) 10 Mg Capsule, 10 MG PO QDAY, CAPSULE 09/11/18 Famotidine (FAMOTIDINE) 20 Mg Tablet, 20 MG PO BID, #20 TAB 02/13/18 Phenazopyridine Hcl (PHENAZOPYRIDINE HCL) 200 Mg Tablet, 200 MG PO TID PRN for BURNING WITH URINATION, #20 TAB 02/13/18 Fluticasone/Salmeterol (ADVAIR 100-50 DISKUS) 1 Each Disk.w.dev, 1 EACH IH BID 02/12/18 Nabumetone (NABUMETONE) 750 Mg Tablet, 750 MG PO BID PRN for PAIN 02/03/18 Duloxetine Hcl (CYMBALTA) 30 Mg Capsule.dr, 30 MG PO QDAY, #5 CAP 01/27/18 Cevimeline Hcl (EVOXAC) 30 Mg Cap, 30 MG PO 1-2XD, CAP 08/02/14 Cetirizine Hcl (Zyrtec) 10 Mg Tablet, 10 MG PO QDAY, 0 Refills 06/11/09 Albuterol (Proventil Inhaler) 17 Gm Inh, 1-2 PUFF INH PRN, 0 Refills 2 PUFFS 06/11/09 Discontinued Reported Medications Hydrocodone Bit/Acetaminophen (HYDROCODON-ACETAMINOPHEN 5-325) 1 Each Tablet, 1 EACH PO Q6H PRN for PAIN, #20 TAB 02/13/18 Cephalexin 500 Mg Tab (KEFLEX 500 MG TAB) 500 Mg Tablet, 500 MG PO Q6H, #20 TAB 02/13/18 Ibuprofen (IBUPROFEN) 600 Mg Tablet, 1 TAB PO TID, #50 TAB 02/06/18 Reviewed Nurses Notes: Yes Old Medical Records Reviewed: Yes Hx Smoking: No Smoking Status: Never Smoker Exposure to Second Hand Smoke?: Yes (growing up) Hx Substance Use Disorder: No Hx Alcohol Use: No Constitutional Vital Sign - Last 24 Hours 01/23/19 01/23/19 10:18 11:00 Pulse 95 Resp 18 Pulse Ox 91 O2 Delivery Room Air Physical Exam General Appearance: The patient is alert, has no immediate need for airway protection and no signs of toxicity. Patient appears to be no acute distress. Eyes: Pupils equal and round no pallor or injection. EOMs are full bilaterally. ENT, Mouth: Mucous membranes are moist. Respiratory: Clear to auscultation bilaterally. No respiratory distress. Cardiovascular: Regular rate and rhythm. Neurological: Cranial nerves II through XII intact. Normal finger to nose test bilaterally. Normal Romberg. Normal gait. Skin: There is a 4.5 cm linear laceration just superior to the right eyebrow and there is another 1 cm V-shaped laceration through the medial aspect of the eyebrow on the right side. Musculoskeletal: Neck is supple non tender. Extremities are nontender, nonswollen and have full range of motion. DIFFERENTIAL DIAGNOSIS: After history and physical exam differential diagnosis was considered for head injury including but not limited to concussion, skull fracture, intraparenchymal contusion, subarachnoid, subdural and epidural hematoma. Medical Decision Making EKG/Imaging Imaging CT Head: IMPRESSION: 1. Midline frontal scalp soft tissue laceration and hematoma. 2. Age related changes as described above. 3. No evidence of acute intracranial pathology. Report Dictated By: Vincent Townsend MD at 01/23/2019 11:56 AM Report E-Signed By: Vincent Towsnend MD at 01/23/2019 12:[address] C-Spine: IMPRESSION: 1. Spondylitic change involving the cervical spine. 2. No acute appearing bony abnormalities. ED Course/Re-evaluation ED Course Will obtain CT of the head and C-spine. Procedure: Laceration repair. Verbal consent was obtained from the patient. The 5.5 cm total laceration on the right face was anesthetized in the usual fashion with 1% lidocaine with epinephrine. The wound was scrubbed, draped and explored to its base with a gloved finger. There were no deep structures involved. No tendon injury was identified. The wound was repaired with 4-0 Vicryl sutures with 4 total sutures and then 5-0 Prolene sutures with a total of 15 sutures for the skin. The wound repair was complex. The procedure was performed by myself. Decision to Disposition Date: January 23, 2019 Decision to Disposition Time: 12:43 Depart Departure Latest Vital Signs Vital Signs Date Time Temp Pulse Resp B/P (MAP) Pulse Ox O2 Delivery O2 Flow Rate FiO2 01/23/19 11:00 95 91 01/23/19 10:18 18 Room Air Impression: Primary Impression: Head injury Additional Impression: Face lacerations Condition: Improved Disposition: HOME OR SELF-CARE Departure Forms: Medications Reconciliation, Patient Portal Information, ER Transition Record Patient Instructions: Facial Laceration (ED), Head Injury (ED) Additional Instructions: Monitor for any signs or symptoms of worsening head injury including worsening headache, dizziness, nausea, vomiting, numbness, tingling, weakness. Monitor for any signs or symptoms of wound infection including redness, swelling, discharge, fever. Follow-up with primary care provider in one week for possible suture removal. Problem Qualifiers Primary Impression: Head injury Encounter type: initial encounter Qualified Codes: S09.90XA - Unspecified injury of head, initial encounter Additional Impression: Face lacerations Encounter type: initial encounter Qualified Codes: S01.81XA - Laceration without foreign body of other part of head, initial encounter LEYLA MISHRA PA-C January 23, 2019 12:45
== END 2019-01-23 12:54 | disposition home or self-care (01) ==
LOC: ER 11:04
DX: S09.90XA Unspecified injury of head, initial encounter (principal); S01.81XA Laceration without foreign body of other part of head, initial encounter; W01.198A Fall on same level from slipping, tripping and stumbling with subsequent striking against other object, initial encounter; Y93.01 Activity, walking, marching and hiking
CPT/HCPCS: 70450; 72125; 90471; 90715; 99284